=== PATIENT | male | born 1970 | race Caucasian/White ===

== ENCOUNTER 2017-09-21 18:34 | Inpatient (IN) | payer OTHER, SELFPAY ==
[2017-09-21 19:05] LABS: Absolute Lymphocytes (CBC) 1.5 K/uL (0.7-4.9); Absolute Monocytes 0.5 K/uL (0.1-1.3); Absolute Neutrophil 6.4 K/uL (1.8-8.0); Basophils % 0.7 % (0-1.3); Hematocrit 49.9 % (39.6-49.0); Lymphocytes % 17.6 % (15.3-44.8); MCH 31.9 pg (27.0-35.0); MCV 93.4 fL (80-100); MPV 8.5 fL (7.6-11.3); Monocytes % 5.4 % (3.3-12.3); RBC Red Blood Cell Count 5.34 M/uL (4.33-5.43)
--- NOTE | 2017-09-21 19:21 | RAD REPORT ---
EXAM DESCRIPTION: RAD - Chest Single View - 09/21/2017 7:03 pm CLINICAL HISTORY: Chest pain. COMPARISON: 04/30/2017, 06/25/2015 FINDINGS: Portable technique limits examination quality. The lungs are grossly clear. The heart is normal in size. No displaced fractures. IMPRESSION: No acute intrathoracic process suspected.
[2017-09-21 19:25] LABS: Protime INR 0.97
[2017-09-21 19:26] LABS: Bicarbonate 24 mEq/L (21-31); Glucose Level 98 mg/dL (65-120); Potassium 3.1 mEq/L (3.6-5.0); Sodium Level 135 mEq/L (135-145)
[2017-09-21 19:32] LABS: ALT/SGPT 40 IU/L (10-60); AST/SGOT 43 IU/L (10-42); Alkaline Phosphatase 52 IU/L (42-121); BUN Blood Urea Nitrogen 16 mg/dL (6-20); Bilirubin Direct 0.2 mg/dL (0-0.2); Bilirubin Total 0.6 mg/dL (0.3-1.2); Creatine Phosphokinase 466 IU/L (22-269); Magnesium 1.8 mg/dL (1.8-2.5); Protein, Total 6.8 g/dL (6.0-8.3)
[2017-09-21] MEDS ORDERED: ASPIRIN 81 MG CHEWABLE TABLET ONE (19:34)
[2017-09-21 19:36] LABS: CKMB Creatine Kinase MB 5.4 ng/ml (0.3-4.0)
[2017-09-21] MEDS ORDERED: POTASSIUM 25 MEQ EFFERV TAB ONE (20:19)
[2017-09-21 21:24] LABS: Barbiturates NEGATIVE; Benzodiazepines POSITIVE; Cocaine NEGATIVE; Opiates NEGATIVE; Phencyclidine NEGATIVE; THC Cannibis NEGATIVE
[2017-09-21 21:34] LABS: METHAMPHETAM POSITIVE (NEGATIVE)
[2017-09-21 22:59] LABS: Urine Blood TRACE (NEG); Urine Glucose NEGATIVE (NEG); Urine Protein 3+ (NEG); Urine Specific Gravity 1.025 (1.005-1.030)
--- NOTE | 2017-09-22 01:11 | ER ---
Nurse's Notes [facility] Name: Sanchez Muse Age: 47 yrs Sex: Male : 1970 Arrival Date: 09/21/2017 Time: 18:37 Bed 15 Private MD: Diagnosis: Chest pain, unspecified;Abnormal electrocardiogram [ECG] [EKG] Presentation: 09/21 18:40 Presenting complaint: EMS states: EMS states patient had sudden onset of mid sternal ae1 chest pain while sitting down talking. Patient states he has a hx of HTN and anxiety. After 0.4 x 3 mg of SL nitro, chest pain and BP have decreased. Transition of care: patient was not received from another setting of care. Onset of symptoms was September 21, 2017. Risk Assessment: Do you want to hurt yourself or someone else? Patient reports no desire to harm self or others. Care prior to arrival: Medication(s) given: Nitroglycerin, 0.4 mg SL x 3, IV initiated. 18 GA, in the right antecubital area. 18:40 Method Of Arrival: EMS: [facility] ae1 18:40 Acuity: TERI 3 ae1 Triage Assessment: 18:43 General: Appears uncomfortable, Behavior is cooperative, anxious. Pain: Complains of ae1 pain in xyphoid area and mid-sternal area Pain does not radiate. Pain currently is 3 out of 10 on a pain scale. Neuro: Level of Consciousness is awake, alert, obeys commands, Oriented to person, place, time, situation. Cardiovascular: Respiratory: Airway is patent Respiratory effort is even, unlabored, Respiratory pattern is regular, symmetrical, Breath sounds are clear bilaterally. Derm: Skin is flushed, Skin temperature is warm. Historical: - Allergies: 18:48 No Known Allergies; ae1 - Home Meds: 18:48 Adderall XR 10 mg Oral cp24 [Active]; lisinopril 20 mg Oral tab 1 tab once daily ae1 [Active]; Xanax 1 mg Oral tab 1 tab as needed for Anxiety [Active]; - PMHx: 18:48 ADD/ADHD; Hypertension; insomnia; ae1 - Immunization history:: Last tetanus immunization: up to date Flu vaccine is up to date. - Social history:: Smoking status: Patient uses tobacco products, denies chronic smoking, but will smoke occasionally. - Ebola Screening: : Patient denies travel to an Ebola-affected area in the 21 days before illness onset. Screenin:10 Abuse screen: Denies threats or abuse. Denies injuries from another. Nutritional aa1 screening: No deficits noted. Tuberculosis screening: No symptoms or risk factors identified. Fall Risk None identified. Assessment: 19:10 General: Appears in no apparent distress. comfortable, Behavior is calm, cooperative, aa1 appropriate for age. Pain: Complains of pain in mid-sternal area and xyphoid area Is continuous, Alleviated by medications. Neuro: Level of Consciousness is awake, alert, obeys commands, Oriented to person, place, time, situation, Moves all extremities. Full function Gait is steady, Speech is normal. Cardiovascular: Reports chest pain, Heart tones S1 S2 present Capillary refill < 3 seconds Patient's skin is warm and dry. Rhythm is regular. Respiratory: Airway is patent Respiratory effort is even, unlabored, Respiratory pattern is regular, symmetrical. GI: No signs and/or symptoms were reported involving the gastrointestinal system. : No signs and/or symptoms were reported regarding the genitourinary system. EENT: No signs and/or symptoms were reported regarding the EENT system. Derm: Skin is intact, is healthy with good turgor, Skin is pink, warm \T\ dry. Musculoskeletal: Circulation, motion, and sensation intact. Capillary refill < 3 seconds, Range of motion: intact in all extremities. 20:11 Reassessment: Patient appears in no apparent distress at this time. Patient and/or aa1 family updated on plan of care and expected duration. Pain level reassessed. Patient is alert, oriented x 3, equal unlabored respirations, skin warm/dry/pink. Pt awaiting repeat troponin to be drawn at 2300. Patient denies pain at this time. 21:04 Reassessment: Patient appears in no apparent distress at this time. Patient and/or aa1 family updated on plan of care and expected duration. Pain level reassessed. Patient is alert, oriented x 3, equal unlabored respirations, skin warm/dry/pink. Pt awaiting repeat troponin due at 2300. 23:11 Reassessment: Patient appears in no apparent distress at this time. Patient and/or aa1 family updated on plan of care and expected duration. Pain level reassessed. Patient is alert, oriented x 3, equal unlabored respirations, skin warm/dry/pink. Repeat troponin sent. 09/22 00:28 Reassessment: Patient appears in no apparent distress at this time. Patient and/or aa1 family updated on plan of care and expected duration. Pain level reassessed. Patient is alert, oriented x 3, equal unlabored respirations, skin warm/dry/pink. Awaiting provider disposition. 01:43 Reassessment: Patient appears in no apparent distress at this time. Patient and/or aa1 family updated on plan of care and expected duration. Pain level reassessed. Patient is alert, oriented x 3, equal unlabored respirations, skin warm/dry/pink. Awaiting bed assignment. 02:45 Reassessment: Patient appears in no apparent distress at this time. Patient and/or aa1 family updated on plan of care and expected duration. Pain level reassessed. Patient is alert, oriented x 3, equal unlabored respirations, skin warm/dry/pink. Awaiting bed assignment. 03:47 Reassessment: Patient appears in no apparent distress at this time. Patient and/or aa1 family updated on plan of care and expected duration. Pain level reassessed. Patient is alert, oriented x 3, equal unlabored respirations, skin warm/dry/pink. Pt to be ER hold at this time. Vital Signs: 09/21 18:49 BP 143 / 86; Pulse 66; Resp 16; Temp 98.3(O); Pulse Ox 98% on R/A; Weight 97.52 kg (R); ae1 19:35 BP 144 / 74; Pulse 61; Resp 18; Pulse Ox 95% on R/A; aa1 20:10 BP 141 / 90; Pulse 66; Resp 16; Pulse Ox 98% on R/A; aa1 21:04 BP 145 / 99; Pulse 82; Resp 14; Pulse Ox 99% on R/A; Pain 0/10; aa1 21:49 BP 142 / 83; Pulse 66; Resp 18; Pulse Ox 99% on R/A; Pain 0/10; aa1 22:30 BP 146 / 88; Pulse 60; Resp 16; Pulse Ox 98% on R/A; Pain 0/10; aa1 23:32 BP 141 / 94; Pulse 54; Resp 16; Pulse Ox 98% on R/A; Pain 0/10; aa1 09/22 00:28 BP 114 / 80; Pulse 59; Resp 16; Pulse Ox 96% on R/A; Pain 0/10; aa1 01:43 BP 141 / 79; Pulse 54; Resp 14; Pulse Ox 97% on R/A; Pain 0/10; aa1 02:30 BP 149 / 99; Pulse 58; Resp 16; Pulse Ox 97% on R/A; Pain 0/10; aa1 03:45 BP 147 / 81; Pulse 53; Resp 16; Pulse Ox 97% on R/A; Pain 0/10; aa1 ED Course: 09/21 18:37 Patient arrived in ED. ch 18:43 Triage completed. ae1 18:44 Janette Jackson, RIANA is Primary Nurse. ch 18:49 Arm band placed on right wrist. EKG completed in triage. Results shown to MD. ae1 18:50 Bed in low position. Call light in reach. Side rails up X 1. Adult w/ patient. Cardiac ae1 monitor on. Pulse ox on. NIBP on. Patient is accompanied by [employer] police officer. 18:57 Juan R Rodriguez NP is PHCP. pm1 18:57 Jose Antonio Kay MD is Attending Physician. pm1 19:01 X-ray completed. Portable x-ray completed in exam room. Patient tolerated procedure bb2 well. 19:02 XRAY Chest (1 view) In Process Unspecified. EDMS 19:10 Maintain EMS IV. Dressing intact. Good blood return noted. Site clean \T\ dry. Gauge \T\ aa 1 site: 18g RAC. 20:08 Kassidy Narvaez, RIANA is Primary Nurse. aa1 09/22 01:07 Alon Puente MD is Hospitalizing Provider. pm1 01:44 No provider procedures requiring assistance completed. Patient admitted, IV remains in aa1 place. Administered Medications: 09/21 19:35 Drug: Aspirin Chewable Tablet 324 mg Route: PO; aa1 21:48 Follow up: Response: No adverse reaction aa1 20:20 Drug: Potassium Effervescent Tablet 50 mEq Route: PO; aa1 21:48 Follow up: Response: No adverse reaction aa1 09/22 01:20 Drug: Lovenox 1 mg/kg Route: Sub-Q; Site: left lower abdomen; aa1 02:30 Follow up: Response: No adverse reaction aa1 Outcome: 01:11 Decision to Hospitalize by Provider. pm1 08:24 Patient left the ED. Signatures: Dispatcher [employer] Janette Loaiza RN RN Kassidy Narvaez RN RN aa1 Juan R Rodriguez, DIPPING MACHINE OPERATOR DIPPING MACHINE OPERATOR pm1 Delbert Lemon RN RN ae1 Analisa Vivas 2
--- NOTE | 2017-09-22 01:11 | EDPHYS ---
Physician Documentation [facility] Name: Sanchez Muse Age: 47 yrs Sex: Male : 1970 Arrival Date: 09/21/2017 Time: 18:37 Bed 15 Private MD: ED Physician Jose Antonio Kay HPI: 09/22 01:00 This 47 yrs old Male presents to ER via EMS with complaints of Chest pain. pm1 01:00 The patient or guardian reports chest pain that is located primarily in the mid-sternal pm1 area. Onset: 1 hour prior to arrival. The pain does not radiate. Associated signs and symptoms: Pertinent positives: shortness of breath, Pertinent negatives: abdominal pain, headache, nausea, palpitations, vomiting. The chest pain is described as sharp, squeezing. Duration: The patient or guardian reports a single episode, that is now resolved. Modifying factors: The symptoms are alleviated by NTG, X3. the symptoms are aggravated by nothing. Severity of pain: in the emergency department the pain has resolved. EMS care prior to arrival includes: nitroglycerin, x 3, with resolution of the chest pain. patient reports on and off chest pain for 1-2 years. The patient has not recently seen a physician, the patient's primary care provider is Dr. Zapata. Patient under police custody. Patient in 1 year long divorce proceedings with his ex-. He went to see his son and the called the police on him, reporting that he was making threats of harm. Patient started experiencing chest pain when he was talking to the officers. Patient with hx of HTN, anxiety, ADD. Historical: - Allergies: 09/21 18:48 No Known Allergies; ae1 - Home Meds: 18:48 Adderall XR 10 mg Oral cp24 [Active]; lisinopril 20 mg Oral tab 1 tab once daily ae1 [Active]; Xanax 1 mg Oral tab 1 tab as needed for Anxiety [Active]; - PMHx: 18:48 ADD/ADHD; Hypertension; insomnia; ae1 - Immunization history:: Last tetanus immunization: up to date Flu vaccine is up to date. - Social history:: Smoking status: Patient uses tobacco products, denies chronic smoking, but will smoke occasionally. - Ebola Screening: : Patient denies travel to an Ebola-affected area in the 21 days before illness onset. ROS: 09/22 01:00 Constitutional: Negative for fever, chills, and weight loss, Eyes: Negative for injury, pm1 pain, redness, and discharge, ENT: Negative for injury, pain, and discharge, Neck: Negative for injury, pain, and swelling. Abdomen/GI: Negative for abdominal pain, nausea, vomiting, diarrhea, and constipation, Back: Negative for injury and pain. : Negative for injury, bleeding, discharge, and swelling, MS/Extremity: Negative for injury and deformity, Skin: Negative for injury, rash, and discoloration, Neuro: Negative for headache, weakness, numbness, tingling, and seizure. Cardiovascular: Positive for chest pain, Negative for edema, orthopnea, palpitations. Respiratory: Positive for shortness of breath, Negative for cough, wheezing. Exam: 01:00 Constitutional: This is a well developed, well nourished patient who is awake, alert, pm1 and in no acute distress. Head/Face: Normocephalic, atraumatic. Eyes: Pupils equal round and reactive to light, extra-ocular motions intact. Lids and lashes normal. Conjunctiva and sclera are non-icteric and not injected. Cornea within normal limits. Periorbital areas with no swelling, redness, or edema. ENT: Nares patent. No nasal discharge, no septal abnormalities noted. Tympanic membranes are normal and external auditory canals are clear. Oropharynx with no redness, swelling, or masses, exudates, or evidence of obstruction, uvula midline. Mucous membranes moist. Neck: Trachea midline, no thyromegaly or masses palpated, and no cervical lymphadenopathy. Supple, full range of motion without nuchal rigidity, or vertebral point tenderness. No Meningismus. 01:00 Cardiovascular: Regular rate and rhythm with a normal S1 and S2. No gallops, murmurs, or rubs. Normal PMI, no JVD. No pulse deficits. Respiratory: Lungs have equal breath sounds bilaterally, clear to auscultation and percussion. No rales, rhonchi or wheezes noted. No increased work of breathing, no retractions or nasal flaring. Abdomen/GI: Soft, non-tender, with normal bowel sounds. No distension or tympany. No guarding or rebound. No evidence of tenderness throughout. Back: No spinal tenderness. No costovertebral tenderness. Full range of motion. Skin: Warm, dry with normal turgor. Normal color with no rashes, no lesions, and no evidence of cellulitis. MS/ Extremity: Pulses equal, no cyanosis. Neurovascular intact. Full, normal range of motion. 01:00 Chest/axilla: Inspection: normal, Palpation: is normal. 01:00 Neuro: Orientation: is normal, Motor: is normal, moves all fours, Sensation: is normal, no obvious gross deficits. 01:00 Psych: Behavior/mood is pleasant, cooperative, Affect is calm. Vital Signs: 09/21 18:49 BP 143 / 86; Pulse 66; Resp 16; Temp 98.3(O); Pulse Ox 98% on R/A; Weight 97.52 kg (R); ae1 19:35 BP 144 / 74; Pulse 61; Resp 18; Pulse Ox 95% on R/A; aa1 20:10 BP 141 / 90; Pulse 66; Resp 16; Pulse Ox 98% on R/A; aa1 21:04 BP 145 / 99; Pulse 82; Resp 14; Pulse Ox 99% on R/A; Pain 0/10; aa1 21:49 BP 142 / 83; Pulse 66; Resp 18; Pulse Ox 99% on R/A; Pain 0/10; aa1 22:30 BP 146 / 88; Pulse 60; Resp 16; Pulse Ox 98% on R/A; Pain 0/10; aa1 23:32 BP 141 / 94; Pulse 54; Resp 16; Pulse Ox 98% on R/A; Pain 0/10; aa1 09/22 00:28 BP 114 / 80; Pulse 59; Resp 16; Pulse Ox 96% on R/A; Pain 0/10; aa1 01:43 BP 141 / 79; Pulse 54; Resp 14; Pulse Ox 97% on R/A; Pain 0/10; aa1 02:30 BP 149 / 99; Pulse 58; Resp 16; Pulse Ox 97% on R/A; Pain 0/10; aa1 03:45 BP 147 / 81; Pulse 53; Resp 16; Pulse Ox 97% on R/A; Pain 0/10; aa1 MDM: 09/21 19:09 Patient medically screened. pm1 09/22 01:06 Data reviewed: vital signs. Data interpreted: Pulse oximetry: on room air is 96 %. pm1 Interpretation: normal. Counseling: I had a detailed discussion with the patient and/or guardian regarding: the historical points, exam findings, and any diagnostic results supporting the discharge/admit diagnosis, lab results, radiology results, the need for further work-up and treatment in the hospital. 01:10 ED course: Repeat ECG with changes. V1-V4 appear to be Wellen's sign. patient continues pm1 to be chest pain free since administration of nitro. Will admit patient due to ECG changes for cardiology evalution. 09/21 18:44 Order name: Basic Metabolic Panel; Complete Time: 19:56 ch 09/21 18:44 Order name: BNP; Complete Time: 19:56 ch 09/21 18:44 Order name: CBC with Diff; Complete Time: 19:56 ch 09/21 18:44 Order name: Ckmb; Complete Time: 19:56 09/21 18:44 Order name: CPK; Complete Time: 19:56 09/21 18:44 Order name: LFT's; Complete Time: 19:56 09/21 18:44 Order name: Magnesium; Complete Time: 19:56 09/21 18:44 Order name: PT-INR; Complete Time: 19:56 09/21 18:44 Order name: Ptt, Activated; Complete Time: 19:56 09/21 18:44 Order name: Troponin (emerg Dept Use Only); Complete Time: 19:56 09/21 19:58 Order name: UDS; Complete Time: 23:03 pm1 09/21 20:51 Order name: Urine Dipstick--Ancillary (enter results); Complete Time: 23:03 rg2 09/21 23:00 Order name: Troponin (emerg Dept Use Only); Complete Time: 00:06 aa1 09/22 07:37 Order name: Troponin I EDTX 09/21 18:44 Order name: XRAY Chest (1 view); Complete Time: 19:23 09/21 18:44 Order name: EKG; Complete Time: 18:45 09/21 18:44 Order name: Cardiac monitoring; Complete Time: 19:29 ch 09/21 18:44 Order name: EKG - Nurse/Tech; Complete Time: 19:29 09/21 18:44 Order name: IV Saline Lock; Complete Time: 19:29 09/21 18:44 Order name: Labs collected and sent; Complete Time: 19:29 09/21 18:44 Order name: O2 Per Protocol; Complete Time: 19:29 09/21 18:44 Order name: O2 Sat Monitoring; Complete Time: 19:29 09/21 18:44 Order name: Urine Dipstick-Ancillary (obtain specimen); Complete Time: 21:49 ch Administered Medications: 09/21 19:35 Drug: Aspirin Chewable Tablet 324 mg Route: PO; aa1 21:48 Follow up: Response: No adverse reaction aa1 20:20 Drug: Potassium Effervescent Tablet 50 mEq Route: PO; aa1 21:48 Follow up: Response: No adverse reaction aa1 09/22 01:20 Drug: Lovenox 1 mg/kg Route: Sub-Q; Site: left lower abdomen; aa1 02:30 Follow up: Response: No adverse reaction aa1 Disposition: 09/23 07:14 Co-signature as Attending Physician, Jose Antonio Kay MD Available for consultation at ps1 all times. . Disposition: 09/22/17 01:11 Hospitalization ordered by Alon Puente for Inpatient Admission. Preliminary diagnosis are Chest pain, unspecified, Abnormal electrocardiogram [ECG] [EKG]. - Bed requested for Telemetry/MedSurg (observation). - Status is Inpatient Admission. ch - Condition is Stable. - Problem is new. - Symptoms have improved. UTI on Admission? No Signatures: Dispatcher [employer] EDMS Kris Forte rg2 Janette Jackson RN RN Veronica Devine RN RN Kassidy Narvaez RN RN aa1 Juan R Rodriguez, FRANKLIN TILE ERECTOR pm1 Delbert Lemon RN RN ae1 Jose Antonio Kay MD MD ps1 Corrections: (The following items were deleted from the chart) 09/22 03:28 01:11 Hospitalization Ordered by Alon Puente MD for Inpatient Admission. Preliminary rg2 diagnosis is Chest pain, unspecified; Abnormal electrocardiogram [ECG] [EKG]. Bed requested for Telemetry/MedSurg (Inpatient). Status is Inpatient Admission. Condition is Stable. Problem is new. Symptoms have improved. UTI on Admission? No. pm1 06:22 03:28 09/22/2017 01:11 Hospitalization Ordered by Alon Puente MD for Inpatient kl Admission. Preliminary diagnosis is Chest pain, unspecified; Abnormal electrocardiogram [ECG] [EKG]. Bed requested for [facility] ER HOLD. Status is Inpatient Admission. Condition is Stable. Problem is new. Symptoms have improved. UTI on Admission? No. rg2 07:24 06:22 09/22/2017 01:11 Hospitalization Ordered by Alon Puente MD for Inpatient rg2 Admission. Preliminary diagnosis is Chest pain, unspecified; Abnormal electrocardiogram [ECG] [EKG]. Bed requested for Telemetry/MedSurg (observation). Status is Inpatient Admission. Condition is Stable. Problem is new. Symptoms have improved. UTI on Admission? No. kl 08:24 07:24 09/22/2017 01:11 Hospitalization Ordered by Alon Puente MD for Inpatient Admission. Preliminary diagnosis is Chest pain, unspecified; Abnormal electrocardiogram [ECG] [EKG]. Bed requested for Telemetry/MedSurg (observation). Status is Inpatient Admission. Condition is Stable. Problem is new. Symptoms have improved. UTI on Admission? No. rg2
[2017-09-22] MEDS ORDERED: ENOXAPARIN 100 MG/ML SYR SQ ONE (01:16)
[2017-09-22 04:43] VITALS: BMI 32.6
[2017-09-22] MEDS ORDERED: ACETAMINOPHEN 500 MG TAB PO PRN (06:30)
[2017-09-22] MEDS ORDERED: MORPHINE 4 MG/ML SYR IV PRN (06:30)
[2017-09-22] MEDS ORDERED: Morphine 2 MG/2 ML SYR IV PRN (07:35)
--- NOTE | 2017-09-22 07:38 | P.HP ---
Certification for Inpatient Patient admitted to: Inpatient With expected LOS: >2 Midnights Patient will require the following post-hospital care: None Practitioner: I am a practitioner with admitting privileges, knowledge of patient current condition, hospital course, and medical plan of care. Services: Services provided to patient in accordance with Admission requirements found in Title 42 Section 412.3 of the Code of Federal Regulations Patient History Date of Service: 09/22/17 Reason for admission: Chest pain rule out acute coronary syndrome History of Present Illness: Patient is a 47-year-old gentleman who came into the hospital with chest pain. Chest pain started when the police were arresting him. Apparently, patient had gotten into an altercation and was being arrested. His chest pain slowly worsened and he was evaluated by the ER physician assistant film editor. The ER physician assistant film editor wanted to admit the patient for further evaluation. Patient states he has been having chest pain in the past. He was recently diagnosed with pneumonia this year. He said he has had some cardiac workup but everything has been unremarkable. He says his chest pain has resolved. His troponins have been negative so far. If his last set of troponins are negative he should be stable for discharge with outpatient follow-up. Allergies No Known Allergies Allergy (Verified 08/31/12 10:43) Home Medications: Alprazolam [Xanax] 1 mg PO PRN PRN 09/22/17 Dextroamphetamine/Amphetamine [Adderall Xr 10 mg Capsule] 10 mg PO DAILY Lisinopril [Prinivil] 20 mg PO DAILY 09/22/17 - Past Medical/Surgical History Diabetic: No -: HTN -: Anxiety -: ADD/ADHD -: hand sx - Family History Father Family History: Reviewed- Non-Contributory - Social History Smoking Status: Current some day smoker Alcohol use: Yes CD- Drugs: No Caffeine use: Yes Place of Residence: Home Review of Systems 10-point ROS is otherwise unremarkable Physical Examination - Vital Signs Temperature: 98.0 F Blood Pressure: 125/93 Pulse: 56 Respirations: 16 Pulse Ox (%): 96 - Physical Exam General: Alert, In no apparent distress, Oriented x3 HEENT: Atraumatic, PERRLA, Mucous membr. moist/pink, EOMI, Sclerae nonicteric Neck: Supple, 2+ carotid pulse no bruit, No LAD, Without JVD or thyroid abnormality Respiratory: Clear to auscultation bilaterally, Normal air movement Cardiovascular: Regular rate/rhythm, Normal S1 S2, No murmurs Gastrointestinal: Normal bowel sounds, Soft and benign, Non-distended, No tenderness Musculoskeletal: No clubbing, No swelling, No tenderness Integumentary: No rashes Neurological: Normal gait, Normal speech, Normal strength at 5/5 x4 extr, Normal tone, Sensation intact, Cranial nerves 3-12 intact, Normal affect Lymphatics: No axilla or inguinal lymphadenopathy - Studies Laboratory Data (last 24 hrs) 09/21/17 18:50: PT 11.4, INR 0.97, APTT 26.1 09/21/17 18:50: WBC 8.5, Hgb 17.1, Hct 49.9 H, Plt Count 170 09/21/17 18:50: B-Natriuretic Peptide 106 H 09/21/17 18:50: Sodium 135, Potassium 3.1 L, BUN 16, Creatinine 0.90, Glucose 98 , Magnesium 1.8, Total Bilirubin 0.6, AST 43 H, ALT 40, Alkaline Phosphatase 52 Assessment & Plan - Problems (Diagnosis) (1) Chest pain, rule out acute myocardial infarction Current Visit: Yes Status: Acute (2) Anxiety as acute reaction to exceptional stress Current Visit: Yes Status: Acute (3) HTN (hypertension) Current Visit: Yes Status: Acute (4) Family history of cardiac disorder in father Current Visit: Yes Status: Acute (5) Polysubstance (excluding opioids) dependence Current Visit: Yes Status: Acute - Plan 1. Serial troponins and EKG 2. Cardiology consultation 3. Echocardiogram 4. Anti-platelet therapy,beta-lidia, statin, and O2 as needed 5. IV morphine for pain 6. Nitro p.r.n. 7. Anticipate discharge under police custody if troponins and echo are negative Discharge Plan: Home Plan to discharge in: 24 Hours - Advance Directives Does patient have a Living Will: No Does patient have a Durable POA for Healthcare: No - Code Status/Comfort Care Code Status Assessed: Yes Code Status: Full Code Critical Care: No Time Spent Managing PTS Care (In Minutes): 50
[2017-09-22] MEDS ORDERED: METOPROLOL TAR 50 MG TAB PO SCH (09:00)
[2017-09-22] MEDS ORDERED: ASPIRIN EC 81 MG TAB PO SCH (09:00)
[2017-09-22 11:20] LABS: Absolute Lymphocytes (CBC) 1.5 K/uL (0.7-4.9); Absolute Monocytes 0.4 K/uL (0.1-1.3); Absolute Neutrophil 4.1 K/uL (1.8-8.0); Basophils % 0.9 % (0-1.3); Eosinophils % 1.8 % (0-4.4); Hematocrit 51.6 % (39.6-49.0); Lymphocytes % 23.9 % (15.3-44.8); MCH 31.8 pg (27.0-35.0); MCV 95.5 fL (80-100); MPV 8.9 fL (7.6-11.3); Monocytes % 6.7 % (3.3-12.3)
[2017-09-22 12:03] LABS: ALT/SGPT 39 IU/L (10-60); AST/SGOT 42 IU/L (10-42); Albumin 3.7 g/dL (3.2-5.5); Alkaline Phosphatase 54 IU/L (42-121); BUN Blood Urea Nitrogen 14 mg/dL (6-20); Bicarbonate 27 mEq/L (21-31); Bilirubin Total 0.9 mg/dL (0.3-1.2); Glucose Level 121 mg/dL (65-120); Phosphorus 2.1 mg/dL (2.5-4.3); Potassium 3.6 mEq/L (3.6-5.0); Protein, Total 6.4 g/dL (6.0-8.3); Sodium Level 132 mEq/L (135-145)
[2017-09-22 12:32] VITALS: O2SAT 98
--- NOTE | 2017-09-22 13:43 | EKG ---
Test Date: 2017-09-22 Test Time: 00:52:51 Steam Roller Operator: STEFANI MEASUREMENT RESULTS: Intervals: Rate: 57 [place]: 138 QRSD: 118 QT: 476 QTc: 463 [place]: P: 34 [place]: 138 QRS: -12 T: 0 INTERPRETIVE STATEMENTS: Sinus bradycardia Left ventricular hypertrophy with QRS widening T wave abnormality, consider anterolateral ischemia Prolonged QT Abnormal ECG Compared to ECG 06/25/2015 13:54:12 T-wave abnormality now present Possible ischemia now present Prolonged QT interval now present Sinus rhythm no longer present Electronically Signed On 09-22-17 13:40:51 CDT by Boaz Arora
--- NOTE | 2017-09-22 13:44 | EKG ---
Test Date: 2017-09-21 Test Time: 18:49:40 Grain Manager: ORQUIDEA MEASUREMENT RESULTS: Intervals: Rate: 76 [place]: 142 QRSD: 104 QT: 396 QTc: 445 [place]: P: 30 W[place]: 142 QRS: 12 T: -31 INTERPRETIVE STATEMENTS: Normal sinus rhythm Left ventricular hypertrophy with repolarization abnormality Abnormal ECG Compared to ECG 06/25/2015 13:54:12 Early repolarization now present Electronically Signed On 09-22-17 13:41:05 CDT by Boaz Arora
--- NOTE | 2017-09-22 14:20 | ECHO ---
HEIGHT: 5 ft 8 in WEIGHT: 214 lb 15.917 oz DATE OF STUDY: 09/21/[address]: 2-DIMENSIONAL: YES M.MODE: YES DOPPLER: YES COLOR FLOW: YES TDS: NO PORTABLE: NO DEFINITY: NO BUBBLE STUDY: NO DIAGNOSIS: DYSPNEA CARDIAC HISTORY: CATHERIZATION: NO SURGERY: NO PROSTHETIC VALVE: NO PACEMAKER: NO MEASUREMENTS (cm) DIASTOLIC (NORMALS) SYSTOLIC (NORMALS) IVSd 1.4(0.6-1.2) LA Diam (1.9-4.0) LVEF 42% LVIDd 5.7 (3.5-5.7) LVIDs 4.5 (2.0-3.5) %FS 21% LVPWd 1.5 (0.6-1.2) Ao Diam 3.5 (2.0-3.7) 2 DIMENSIONAL ASSESSMENT: RIGHT ATRIUM: NORMAL LEFT ATRIUM: DILATED RIGHT VENTRICLE: NORMAL LEFT VENTRICLE: NORMAL SIZE TRICUSPID VALVE: NORMAL MITRAL VALVE: NORMAL PULMONIC VALVE: NORMAL AORTIC VALVE: NORMAL PERICARDIAL EFFUSION: NONE AORTIC ROOT: NORMAL LEFT VENTRICULAR WALL MOTION: MILD GLOBAL HYPOKINESIS. DOPPLER/COLOR FLOW: MILD TRICUSPID REGURGITATION. NORMAL RIGHT VENTRICULAR SYSTOLIC PRESSURE. COMMENTS: LEFT ATRIAL ENLARGEMENT. MILD GLOBAL HYPOKINESIS. EJECTION FRACTION 40-45% TECHNOLOGIST: JORDAN RODRIGUEZ
--- NOTE | 2017-09-22 14:42 | P.DS ---
Admission Date: 09/22/17 Discharge Date: 09/22/17 Primary Care Provider: Dr. Mijares Disposition: ROUTINE DISCHARGE Discharge Condition: GOOD Reason for Admission: Chest pain rule out acute coronary syndrome Procedures: Echocardiogram: Ejection fraction 40-45%. Left atrial enlargement. Mild global hypokinesis - Problems (1) Anxiety as acute reaction to exceptional stress Onset Date: 09/22/17 Current Visit: Yes Status: Acute (2) Chest pain, rule out acute myocardial infarction Onset Date: 09/22/17 Current Visit: Yes Status: Acute (3) HTN (hypertension) Onset Date: 09/22/17 Current Visit: Yes Status: Chronic Qualifiers: Hypertension type: essential hypertension Qualified Code(s): I10 - Essential (primary) hypertension (4) Polysubstance (excluding opioids) dependence Onset Date: 09/22/17 Current Visit: Yes Status: Acute (5) Family history of cardiac disorder in father Onset Date: 09/22/17 Current Visit: No Status: Chronic (6) Tobacco abuse Current Visit: Yes Status: Acute (7) CHF (congestive heart failure) Current Visit: Yes Status: Chronic Qualifiers: Heart failure type: systolic Heart failure chronicity: chronic Qualified Code(s): I50.22 - Chronic systolic (congestive) heart failure (8) LEONARD-inhibitor cough Current Visit: Yes Status: Acute Brief History of Present Illness: 47-year-old male presented to the ER with chest pain. Chest pain occurred when he was getting arrested. The patient was brought to the ER for evaluation. Patient was observed. Patient with history of hypertension but non compliant with his medication. He reports a chronic cough with lisinopril. Hospital Course: During the course of his stay cardiac enzymes unremarkable. Echocardiogram showed ejection fraction of about 40-45%. Chest pain resolved. Patient will be discharged. No need for intervention at this time. Patient has hypertension. Patient appears to have Leonard allergy with lisinopril. He reports a chronic cough. Patient also reports noncompliance with his blood pressure medication. At discharge medications will include aspirin 81 mg daily and losartan 50 mg daily. Recommendation is to maintain blood pressures less 150/ 80. Further adjustment can be done by his PCP. Recommendations for the patient follow up with cardiology as an outpatient to further evaluate. Patient may require cardiac intervention to further assess his hypertension and CHF. Patient may have the beginning of systolic CHF. Patient without edema to the lower extremities. Patient asymptomatic. Recommendation is to limit his fluid intake to less than 2 L per day. He is to decrease his salt intake. Compliance with blood pressure medication is encouraged. Recommendations for the patient follow up with cardiology as an outpatient to further monitor. Patient was positive for amphetamines. Patient has used ADD medication the past. Recommendation to discontinue medications. Patient with history of tobacco abuse. Tobacco cessation addressed in detail. Vital Signs/Physical Exam: Temp Pulse Resp BP Pulse Ox 98.0 F 56 16 125/93 H 96 09/22/17 10:29 09/22/17 12:42 09/22/17 10:29 09/22/17 12:42 09/22/17 10:29 General: Alert, In no apparent distress, Oriented x3, Cooperative HEENT: Atraumatic, Mucous membr. moist/pink Neck: Supple Respiratory: Clear to auscultation bilaterally, Normal air movement Cardiovascular: Normal pulses, Regular rate/rhythm Gastrointestinal: Normal bowel sounds, Soft and benign, Non-distended, No tenderness, No masses, No rebound, No guarding Musculoskeletal: No erythema, No tenderness, No warmth Integumentary: No tenderness/swelling, No erythema, No warmth, No cyanosis Neurological: Normal speech, Normal strength at 5/5 x4 extr, Normal tone, Normal affect Laboratory Data at Discharge: WBC 6.1 K/uL (4.3-10.9) D 09/22/17 10:57 Hgb 17.2 g/dL (13.6-17.9) 09/22/17 10:57 Hct 51.6 % (39.6-49.0) H 09/22/17 10:57 Plt Count 172 K/uL (152-406) 09/22/17 10:57 PT 11.4 SECONDS (9.5-12.5) 09/21/17 18:50 INR 0.97 09/21/17 18:50 APTT 26.1 SECONDS (24.3-36.9) 09/21/17 18:50 Sodium 132 mEq/L (135-145) L 09/22/17 10:57 Potassium 3.6 mEq/L (3.6-5.0) 09/22/17 10:57 BUN 14 mg/dL (6-20) 09/22/17 10:57 Creatinine 0.89 mg/dL (0.61-1.24) 09/22/17 10:57 Glucose 121 mg/dL (65-120) H 09/22/17 10:57 Phosphorus 2.1 mg/dL (2.5-4.3) L 09/22/17 10:57 Magnesium 2.0 mg/dL (1.8-2.5) 09/22/17 10:57 Total Bilirubin 0.9 mg/dL (0.3-1.2) 09/22/17 10:57 AST 42 IU/L (10-42) 09/22/17 10:57 ALT 39 IU/L (10-60) 09/22/17 10:57 Alkaline Phosphatase 54 IU/L (42-121) 09/22/17 10:57 Troponin I < 0.03 ng/mL (<0.03) 09/22/17 06:50 B-Natriuretic Peptide 106 pg/ml (<=100) H 09/21/17 18:50 Home Medications: Aspirin [Aspirin EC 81 MG] 81 mg PO DAILY #90 tablet. 09/22/17 Losartan Potassium 50 mg PO DAILY #30 tablet 09/22/17 New Medications: Aspirin [Aspirin EC 81 MG] 81 mg PO DAILY #90 tablet. Losartan Potassium 50 mg PO DAILY #30 tablet Patient Discharge Instructions: 1. Patient will need a follow up with his PCP in 1 week to follow up this hospitalization. 2. Patient presented with chest pain. Chest pain resolved. Cardiac enzymes unremarkable. Echocardiogram shows ejection fraction 40%. Patient will continue with a 2000 cc per day fluid restriction and low-salt diet. At discharge patient will continue with aspirin 81 mg daily. Patient with history of hypertension. Lisinopril has been discontinued due to Leonard allergy. At discharge he will continue with losartan 50 mg 1 pill daily. Recommendation is to maintain blood pressures less 150/80. Further adjustment can be done by his PCP. Recommendation is for the patient to follow up with cardiology in 1-2 weeks to follow this hospitalization. 3. Recommendation is to discontinue benzodiazepines and amphetamine use. 4. If his chest pain persists, patient may need follow up with cardiology as an outpatient to further monitor. Diet: AHA Activity: Fall precautions Followup: Babak Rivera MD [ACTIVE - CAN ADMIT] - Time spent managing pt's care (in minutes): 55
[2017-09-22 17:19] VITALS: BP 132/84; TEMP 97.7
--- NOTE | 2017-09-22 20:28 | CON ---
History Of Present Illness: The patient is a 47-year-old male without any significant past cardiac h istory. He has a history of ADD and hypertension and he takes Xanax, Advil, and lisinopril. He came in with atypical chest pain and shortness of breath. CPK was 460, MB was 5.4. EKG showed left vent ricular hypertrophy. An echocardiogram was done before, I saw him that showed some mild global hypok inesis. Past Medical History: As stated above. Allergies: NONE KNOWN. Review of Systems: Negative. Social History: Negative. Family History: Noncontributory. Medications: Listed earlier. Physical Examination: Vital Signs: Stable, afebrile, asymptomatic now. HEENT: Negative. Neck: Supple with no bruit. Chest: Clear. Cardiac: Revealed a regular rhythm and rate. No murmurs, gallops, or rubs. Abdomen: Benign. Extremities: Revealed no clubbing, cyanosis, or edema. Diagnostic Data: As stated earlier. Impression And Plan: Mild global hypokinesis on echocardiography in a patient with chest pain, only risk factor is hypertension. EKG showed left ventricular hypertrophy. CPKs and MBs are slightly con cerning, although his troponin is negative. It is unlikely have an acute coronary syndrome, but nevertheless, I recommend we do a Lexiscan before he goes home. I discussed t he case with Dr. Puente. JORGE/WESLEY Voice ID: [id number] Report ID: [id number]
--- NOTE | 2017-09-23 02:56 | P.PN ---
Date of Service: 09/22/17 I was notified by Dr. Arora regarding abnormal echocardiogram in an otherwise young 47yo male. Recommended that patient would need to be further evaluated as primary concern for patient's new diagnosis of acute CHF systolic dysfunction is ischemic cardiomyopathy. Spoke to nursing staff, and was notified that patient had been discharged. I asked them to hold discharge. I called [facility], as [facility], and asked them to bring patient back to his room. They were very helpful in bringing patient back to his room as per cardiology concern. Patient was advised to get further testing including a lexiscan. However, patient decided to go AMA and stated he would return to hospital once released from [facility].
== END 2017-09-22 16:30 | disposition left against medical advice (07) | DRG 313 ==
LOC: ER 18:34 → ERHOLD 09-22 02:09 → 2ND 09-22 06:32
PROVIDERS: ADMIT Hospitalist; ATTEND Hospitalist
DX: R07.9 Chest pain, unspecified (principal); I50.21 Acute systolic (congestive) heart failure; F15.20 Other stimulant dependence, uncomplicated; I11.0 Hypertensive heart disease with heart failure; F41.1 Generalized anxiety disorder; F43.0 Acute stress reaction; R05 Cough; T46.4X5A Adverse effect of angiotensin-converting-enzyme inhibitors, initial encounter; Z91.14 Patient's other noncompliance with medication regimen
CPT/HCPCS: 36415; 71045; 80048; 80053; 80076; 80307; 81003; 82550; 82553; 83735; 83880; 84100; 84484; 85025; 85610; 85730; 93005; 93306; 96372; 99284; J1650

== ENCOUNTER 2018-03-15 05:23 | Emergency (ER) | payer SELFPAY ==
[2018-03-15] MEDS ORDERED: LIDOCAINE 1% MPF 30 ML VIAL ONE ×2 (05:40→06:04)
[2018-03-15 05:44] LABS: Absolute Lymphocytes (CBC) 3.7 K/uL (0.7-4.9); Absolute Monocytes 0.7 K/uL (0.1-1.3); Absolute Neutrophil 7.6 K/uL (1.8-8.0); Basophils % 0.8 % (0-1.3); Eosinophils % 2.3 % (0-4.4); Hematocrit 49.8 % (39.6-49.0); Lymphocytes % 29.9 % (15.3-44.8); MCV 91.4 fL (80-100); MPV 8.9 fL (7.6-11.3); Monocytes % 5.6 % (3.3-12.3); RBC Red Blood Cell Count 5.46 M/uL (4.33-5.43)
[2018-03-15 06:02] LABS: Potassium 3.7 mmol/L (3.5-5.1)
[2018-03-15 06:28] LABS: Protime INR 1.13
[2018-03-15 06:29] LABS: Albumin 3.6 g/dL (3.4-5.0); Bilirubin Direct 0.2 mg/dL (0-0.2); Bilirubin Total 0.5 mg/dL (0.2-1.0); Protein, Total 7.3 g/dL (6.4-8.2); Troponin (Emerg Dept Use Only) 0.02 ng/mL (0.0-0.045)
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
--- NOTE | 2018-03-15 06:55 | EDPHYS ---
Physician Documentation [facility] Name: Sanchez Muse Age: 47 yrs Sex: Male : 1970 Arrival Date: 03/15/2018 Time: 05:24 Bed 5 Private MD: ED Physician Jesus Zurita HPI: 03/15 06:42 This 47 yrs old Male presents to ER via Wheelchair with complaints of pkl Laceration. 06:42 The patient or guardian reports injury, a laceration, clean, 6 cm(s). The complaints pkl affect the right wrist diffusely. Context: resulted from cut by knife. Onset: The symptoms/episode began/occurred just prior to arrival. Associated signs and symptoms: Pertinent positives: of the chest pain. Historical: - Allergies: 06:07 No Known Allergies; tl2 - Home Meds: 06:07 Adderall XR 10 mg Oral cp24 [Active]; lisinopril 20 mg Oral tab 1 tab once daily tl2 [Active]; Xanax 1 mg Oral tab 1 tab as needed for Anxiety [Active]; - PMHx: 06:07 ADD/ADHD; Hypertension; insomnia; tl2 - Immunization history:: Adult Immunizations up to date, Last tetanus immunization: up to date. - Immunization history: Last tetanus immunization: < 5 years ago. - Social history:: Smoking status: Patient uses tobacco products, denies chronic smoking, but will smoke occasionally. - Ebola Screening: : No symptoms or risks identified at this time. ROS: 06:42 Eyes: Negative for injury, pain, redness, and discharge, ENT: Negative for injury, pkl pain, and discharge, Neck: Negative for injury, pain, and swelling. 06:42 Cardiovascular: Positive for chest pain. 06:42 Respiratory: Negative for cough, shortness of breath. 06:42 Abdomen/GI: Negative for abdominal pain, nausea, vomiting, and diarrhea. 06:42 Back: Negative for acute changes. 06:42 : Negative for urinary symptoms. 06:42 MS/extremity: Positive for laceration, pain, of the right wrist. 06:42 Skin: Negative for rash. Exam: 06:42 Head/Face: Normocephalic, atraumatic. Eyes: Pupils equal round and reactive to light, pkl extra-ocular motions intact. Lids and lashes normal. Conjunctiva and sclera are non-icteric and not injected. Cornea within normal limits. Periorbital areas with no swelling, redness, or edema. ENT: Nares patent. No nasal discharge, no septal abnormalities noted. Tympanic membranes are normal and external auditory canals are clear. Oropharynx with no redness, swelling, or masses, exudates, or evidence of obstruction, uvula midline. Mucous membranes moist. Neck: Trachea midline, no thyromegaly or masses palpated, and no cervical lymphadenopathy. Supple, full range of motion without nuchal rigidity, or vertebral point tenderness. No Meningismus. Chest/axilla: Normal chest wall appearance and motion. Nontender with no deformity. No lesions are appreciated. Cardiovascular: Regular rate and rhythm with a normal S1 and S2. No gallops, murmurs, or rubs. Normal PMI, no JVD. No pulse deficits. Respiratory: Lungs have equal breath sounds bilaterally, clear to auscultation and percussion. No rales, rhonchi or wheezes noted. No increased work of breathing, no retractions or nasal flaring. Abdomen/GI: Soft, non-tender, with normal bowel sounds. No distension or tympany. No guarding or rebound. No evidence of tenderness throughout. Back: No spinal tenderness. No costovertebral tenderness. Full range of motion. Neuro: Awake and alert, GCS 15, oriented to person, place, time, and situation. Cranial nerves II-XII grossly intact. Motor strength 5/5 in all extremities. Sensory grossly intact. Cerebellar exam normal. Normal gait. 06:42 Musculoskeletal/extremity: Extremities: grossly normal except: noted in the right wrist: pain, laceration. Vital Signs: 05:25 BP 67 / 49; Pulse 118; Resp 22; Pulse Ox 98% on R/A; tl2 05:37 BP 70 / 43; Pulse 94; Resp 22; Pulse Ox 99% ; tl2 05:45 BP 92 / 66; Pulse 91; Resp 22; Pulse Ox 100% on R/A; tl2 05:50 BP 95 / 63; Pulse 98; Resp 18; Pulse Ox 99% ; tl2 06:35 BP 103 / 73; Pulse 102; Resp 14; Pulse Ox 100% on R/A; tl2 07:06 BP 110 / 83; Pulse 91; Resp 18; Pulse Ox 100% on R/A; tl2 Adela Coma Score: 06:01 Eye Response: spontaneous(4). Verbal Response: oriented(5). Motor Response: obeys tl2 commands(6). Total: 15. Trauma Score (Adult): 05:30 Eye Response: spontaneous(1); Verbal Response: oriented(1); Motor Response: obeys tl2 commands(2); Systolic BP: 50 to 75 mm Hg(2); Respiratory Rate: 10 to 29 per min(4); North Score: 15; Trauma Score: 10 Laceration: 06:42 Skin closed with 10 4-0 Prolene using simple sutures and sterile technique. pk MDM: 06:42 Data reviewed: vital signs, nurses notes, lab test result(s), EKG. pk 06:54 Patient medically screened. [facility] 03/15 05:30 Order name: Type And Screen; Complete Time: 06:41 03/15 05:30 Order name: CBC with Diff; Complete Time: 06:17 03/15 05:30 Order name: BMP; Complete Time: 06:41 03/15 05:49 Order name: Alcohol Serum/Plasma; Complete Time: 06:17 EDMS 03/15 05:57 Order name: PT-INR; Complete Time: 06:57 2 03/15 06:01 Order name: ABO/RH no charge; Complete Time: 06:17 EDMS 03/15 06:04 Order name: Liver (Hepatic) Function; Complete Time: 06:41 EDMS 03/15 06:04 Order name: Troponin (Emerg Dept Use Only); Complete Time: 06:41 EDMS 03/15 06:04 Order name: NT PRO-BNP; Complete Time: 06:41 EDMS 03/15 05:57 Order name: EKG; Complete Time: 05:57 tl2 03/15 05:57 Order name: Cardiac monitoring; Complete Time: 05:57 tl2 03/15 05:57 Order name: EKG - Nurse/Tech; Complete Time: 06:58 tl2 03/15 05:57 Order name: IV Saline Lock; Complete Time: 05:57 tl2 03/15 05:57 Order name: Labs collected and sent; Complete Time: 05:57 tl2 03/15 05:57 Order name: O2 Per Protocol; Complete Time: 05:57 tl2 03/15 05:57 Order name: O2 Sat Monitoring; Complete Time: 05:57 tl2 03/15 06:04 Order name: Magnesium; Complete Time: 06:41 EDMS Administered Medications: 05:40 Drug: NS 0.9% 2000 ml Route: IV; Rate: 1000 ml; Site: left antecubital; tl2 06:30 Follow up: Response: No adverse reaction; Blood pressure is elevated; IV Status: rr5 Completed infusion; IV Intake: 2000ml 07:40 Drug: KeFLEX 1000 mg Route: PO; jl7 07:40 Follow up: Response: Medication administered at discharge. jl7 Disposition: 03/15/18 06:54 Discharged to Home. Impression: Deep laceration right wrist. Chest pain. Ingestion of alcohol. - Condition is Stable. - Prescriptions for Keflex 500 mg Oral Capsule - take 1 capsule by ORAL route every 6 hours for 7 days; 28 capsule. Ultram 50 mg Oral Tablet - take 1 tablet by ORAL route every 8 hours As needed; 20 tablet. - Medication Reconciliation Form, Thank You Letter, Antibiotic Education, Prescription Opioid Use form. - Follow up: Delroy Villarreal MD; When: 2 - 3 days; Reason: Re-evaluation by your physician. Signatures: Dispatcher [employer] EDMS Jesus Zurita MD MD pkl Mickail, Joel, PA PA jmm Knox, Taylor RN RN tl2 Lissa Fisher RN RN jl7 William Snyder RN rr5 Corrections: (The following items were deleted from the chart) 05:48 05:40 ETHANOL+C.LAB.BRZ ordered. EDMS EDMS 06:04 05:57 HEPATIC FUNCTION+C.LAB.BRZ ordered. EDMS EDMS 06:04 05:57 MAGNESIUM+C.LAB.BRZ ordered. EDMS EDMS 06:04 05:57 PROBNP+C.LAB.BRZ ordered. EDMS EDMS 06:04 05:57 TROPONIN (EMERG DEPT USE ONLY)+C.LAB.BRZ ordered. EDMS EDMS 07:04 05:57 Chest Single View+RAD.RAD.BRZ ordered. EDMS EDMS 07:38 06:54 03/15/2018 06:54 Discharged to Home. Impression: Deep laceration right wrist. jl7 Chest pain. Ingestion of alcohol. Condition is Stable. Forms are Medication Reconciliation Form, Thank You Letter, Antibiotic Education, Prescription Opioid Use. Follow up: Delroy Villarreal; When: 2 - 3 days; Reason: Re-evaluation by your physician. pkl
[2018-03-15] MEDS ORDERED: CEPHALEXIN 250 MG CAP ONE (07:19)
[2018-03-15 07:50] VITALS: O2SAT 100
[2018-03-15 07:52] VITALS: BP 110/83
--- NOTE | 2018-03-15 10:28 | EKG ---
Test Date: 2018-03-15 Test Time: 06:59:04 Pan Greaser: JONAS MEASUREMENT RESULTS: Intervals: Rate: 96 MN: 134 QRSD: 96 QT: 358 QTc: 452 [place]: P: 28 MN: 134 QRS: -20 T: -1 INTERPRETIVE STATEMENTS: Normal sinus rhythm Minimal voltage criteria for LVH, may be normal variant Nonspecific T wave abnormality Abnormal ECG Compared to ECG 09/22/2017 00:52:51 Sinus bradycardia no longer present Possible ischemia no longer present Prolonged QT interval no longer present T-wave abnormality still present Electronically Signed On 03-15-18 10:27:16 COMMUNITY CHEST OFFICER by Babak Rivera
== END 2018-03-15 07:38 | disposition home or self-care (01) ==
LOC: ER 05:23
PROC: 0JQG0ZZ Repair Right Lower Arm Subcutaneous Tissue and Fascia, Open Approach (ICD-10-PCS; principal; 2018-03-15)
DX: S61.511A Laceration without foreign body of right wrist, initial encounter (principal); R07.9 Chest pain, unspecified; R94.31 Abnormal electrocardiogram [ECG] [EKG]; W26.0XXA Contact with knife, initial encounter; F90.9 Attention-deficit hyperactivity disorder, unspecified type; I10 Essential (primary) hypertension; G47.00 Insomnia, unspecified; Z72.0 Tobacco use; Z79.899 Other long term (current) drug therapy
CPT/HCPCS: 36415; 80048; 80076; 80320; 83735; 83880; 84484; 85025; 85610; 86850; 86900; 86901; 93005; 96360; 99284

== ENCOUNTER 2023-11-17 15:36 | Emergency (ER) | payer OTHER ==
--- OUTSIDE RECORDS SUMMARY | 2023-11-17 15:38 | XMS REPORT | Continuity of Care Document ---
Author Name Unknown Address [address] [facility] [place] [address] [facility] thconnect Address [address] [facility] [address] [place] [address] Care Team Providers Care Visual Education Teacher Name Role Phone Patel_K_WAG Attending Clinician Unavailable Patel_K_WAG Admitting Clinician Unavailable Payers Payer Name Policy Type Policy Number Effective Date Expirati on Date Source Encounters Start Date/Time End Date/Time Encounter Type Admission Type Attending Clinicians Care Facility Care Department Encounter ID Source 2022-02-18 11:05:19 2022-02-18 11:05:19 Outpatient [facility] [id number] 2022-01-30 16:24:15 2022-01-30 16:24:15 Outpatient [facility] [id number] [facility] 2020-09-13 04:05:00 2020-09-13 04:05:00 Outpatient Patel_K_WAG VFP VFP [id number] [facility]
[2023-11-17] MEDS ORDERED: ACETAMINOPHEN 500 MG TAB ONE (16:01)
[2023-11-17] MEDS ORDERED: NA CHLORIDE 0.9% 3,000 ML ONE (16:01)
[2023-11-17 16:49] LABS: Absolute Eosinophils 0.1 K/uL (0-0.5); Absolute Lymphocytes (CBC) 1.2 K/uL (0.7-4.9); Absolute Monocytes 0.9 K/uL (0.1-1.3); Absolute Neutrophil 7.5 K/uL (1.8-8.0); Basophils % 0.3 % (0-1.3); Eosinophils % 0.6 % (0-4.4); Hemoglobin 12.7 g/dL (13.6-17.9); Lymphocytes % 12.5 % (15.3-44.8); MCH 28.7 pg (27.0-35.0); MCHC 33.3 g/dL (32.0-36.0); MCV 86.1 fL (80-100); MPV 8.4 fL (7.6-11.3); Monocytes % 9.2 % (3.3-12.3); Neutrophils % 77.4 % (41.7-73.7); Platelets 157 thou/uL (152-406); RBC Red Blood Cell Count 4.41 M/uL (4.33-5.43); Red Cell Distribution Width 14.2 % (12.1-15.2)
[2023-11-17 16:51] LABS: Albumin 3.2 g/dL (3.4-5.0); Anion Gap 6.4 mEq/L (5.0-15.0); Globulin 3.2 g/dL (2.3-3.5); Potassium 3.4 mEq/L (3.5-5.1); Protein, Total 6.4 g/dL (6.4-8.2)
[2023-11-17 16:54] LABS: PT Prothrombin Time 13.6 SECONDS (9.4-12.5); PTT, Activated Partial Thromb 30.1 SECONDS (24.3-36.9); Protime INR 1.22
[2023-11-17 16:56] LABS: SARS-CoV-2 Antigen CONTROL BLUE LINE VIS/BG OK; SARS-CoV-2 Antigen Rapid Res Negative (Negative)
--- NOTE | 2023-11-17 18:35 | RAD REPORT ---
EXAM DESCRIPTION: RADChest Single View11/17/2023 5:20 pm CLINICAL HISTORY: Congestion;Cough COMPARISON: Chest Single View dated 09/27/2023; Chest Single View dated 05/25/2023; Chest Single View da toshia 09/21/2017; Chest Pa And Lat (2 Views) dated 04/30/2017 TECHNIQUE: Portable AP view of the chest. FINDINGS: The lungs are clear. No pneumothorax or effusion. The cardiomediastinal contours are unre markable. IMPRESSION: No acute cardiopulmonary process.
[2023-11-17 19:04] LABS: Specific Gravity 1.018 (1.005-1.030); Sqamous Epithelial None Seen /HPF (None Seen); Urine Bacteria None Seen /HPF (<20); Urine Bilirubin NEGATIVE (Negative); Urine Blood Negative (Negative); Urine Clarity Clear (Clear); Urine Color Yellow (Yellow); Urine Crystals Unidentified Few /HPF (None Seen); Urine Culture Reflex Order NOT NEEDED; Urine Glucose NEGATIVE (Negative); Urine Ketones NEGATIVE (Negative); Urine Microscopic Reflex YN ORDER UMIC; Urine Mucus Slight /HPF (None Seen); Urine Nitrite NEGATIVE (Negative); Urine Protein TRACE (Negative); Urine RBC <5 /HPF (None Seen); Urine Urobilinogen Normal (Normal); Urine WBC <5 /HPF (<5); Urine pH 5.5 (5.0-7.0)
--- NOTE | 2023-11-17 19:57 | ER ---
Nurse's Notes [facility] Name: Sanchez Muse Age: 53 yrs Sex: Male : 1970 Arrival Date: 11/17/2023 Time: 15:36 Bed 19 Private MD: Diagnosis: Acute upper respiratory infection, unspecified Presentation: 11/16 15:53 Chief complaint: EMS states: they were toned out for cough, congestion, and fever x4 kc6 days. Coronavirus screen: At this time, the client does not indicate any symptoms associated with coronavirus-19. Ebola Screen: No symptoms or risks identified at this time. Initial Sepsis Screen: Does the patient meet any 2 criteria? Temp <36.0*C (96.8*F)) or > 38.3*C (100.9*F). HR > 90 bpm. Does the patient have a suspected source of infection? No. Patient's initial sepsis screen is negative. Risk Assessment: Do you want to hurt yourself or someone else? Patient reports no desire to harm self or others. Onset of symptoms was November 13, 2023. 15:53 Acuity: TERI 3 kc6 15:53 Method Of Arrival: EMS: [facility] kc6 Triage Assessment: 15:55 General: Appears in no apparent distress. comfortable, well groomed, well developed, kc6 Behavior is calm, cooperative, appropriate for age. Pain: Denies pain. EENT: Reports nasal congestion. Neuro: Level of Consciousness is awake, alert, obeys commands, Oriented to person, place, time, situation, Appropriate for age. Cardiovascular: Capillary refill < 3 seconds. Respiratory: Reports cough that is Airway is patent Trachea midline Respiratory effort is even, unlabored, Respiratory pattern is regular, symmetrical, Breath sounds are clear bilaterally. GI: No signs and/or symptoms were reported involving the gastrointestinal system. : No signs and/or symptoms were reported regarding the genitourinary system. Derm: No signs and/or symptoms reported regarding the dermatologic system. Skin is intact, is healthy with good turgor, Skin is pink, warm \T\ dry. Musculoskeletal: No signs and/or symptoms reported regarding the musculoskeletal system. Circulation, motion, and sensation intact. Capillary refill < 3 seconds, Range of motion: intact in all extremities. Historical: - Allergies: 15:55 No Known Allergies; kc6 - PMHx: 15:55 ADD/ADHD; Hypertension; insomnia; kc6 - PSHx: 15:55 None; kc6 - Immunization history:: Adult Immunizations up to date. - Infectious Disease History:: Denies. - Social history:: Smoking status: Patient denies any tobacco usage or history of. Screenin:57 [facility] ED Fall Risk Assessment (Adult) History of falling in the last 3 months, kc6 including since admission No falls in past 3 months (0 pts) Confusion or Disorientation No (0 pts) Intoxicated or Sedated No (0 pts) Impaired Gait No (0 pts) Mobility Assist Device Used No (0 pt) Altered Elimination No (0 pt) Score/Fall Risk Level 0 - 2 = Low Risk. Abuse screen: Denies threats or abuse. Denies injuries from another. Nutritional screening: No deficits noted. Tuberculosis screening: No symptoms or risk factors identified. Assessment: 15:57 Reassessment: please see triage. kc6 16:49 Reassessment: Patient appears in no apparent distress at this time. No changes from 6 previously documented assessment. Patient and/or family updated on plan of care and expected duration. Pain level reassessed. Patient is alert, oriented x 3, equal unlabored respirations, skin warm/dry/pink. 17:42 Reassessment: Patient appears in no apparent distress at this time. No changes from kc6 previously documented assessment. Patient and/or family updated on plan of care and expected duration. Pain level reassessed. Patient is alert, oriented x 3, equal unlabored respirations, skin warm/dry/pink. 18:52 Reassessment: Patient appears in no apparent distress at this time. No changes from kc6 previously documented assessment. Patient and/or family updated on plan of care and expected duration. Pain level reassessed. Patient is alert, oriented x 3, equal unlabored respirations, skin warm/dry/pink. 19:00 General: Appears in no apparent distress. comfortable, Behavior is calm, cooperative, jw7 appropriate for age. Pain: Denies pain. Neuro: Level of Consciousness is awake, alert, obeys commands, Oriented to person, place, time, situation, Appropriate for age. Cardiovascular: Heart tones S1 S2 present Capillary refill < 3 seconds Clubbing of nail beds is absent JVD is absent Patient's skin is warm and dry. Respiratory: Airway is patent Trachea midline Respiratory effort is even, unlabored, Respiratory pattern is regular, symmetrical, Breath sounds are clear bilaterally. GI: Abdomen is round non-distended, Bowel sounds present X 4 quads. Abd is soft and non tender X 4 quads. : No deficits noted. No signs and/or symptoms were reported regarding the genitourinary system. EENT: No deficits noted. No signs and/or symptoms were reported regarding the EENT system. Derm: Skin is intact, is healthy with good turgor, Skin is dry, Skin is red, Skin temperature is warm. Musculoskeletal: Circulation, motion, and sensation intact. Range of motion: intact in all extremities. 20:00 Reassessment: Patient appears in no apparent distress at this time. No changes from [facility] previously documented assessment. Patient and/or family updated on plan of care and expected duration. Pain level reassessed. Patient is alert, oriented x 3, equal unlabored respirations, skin warm/dry/pink. Vital Signs: 15:53 BP 128 / 55; Pulse 97; Resp 19 S; Temp 101(O); Pulse Ox 100% on R/A; Weight 90.72 kg kc6 (R); Height 5 ft. 7 in. (R); 16:49 BP 113 / 70; Pulse 83; Resp 16 S; Pulse Ox 95% on R/A; kc6 16:59 Temp 99.3(O); kc6 17:42 BP 115 / 50; Pulse 74; Resp 18 S; Pulse Ox 95% on R/A; kc6 19:00 BP 104 / 53; Pulse 67; Resp 18 S; Pulse Ox 98% on R/A; jw7 20:00 BP 100 / 57; Pulse 65; Resp 17 S; Temp 99.2(O); Pulse Ox 96% on R/A; jw7 15:53 Body Mass Index 31.32 (90.72 kg, 170.18 cm) [facility]: 15:40 Patient arrived in ED. kb 15:41 Deepali Rivera FNP-C [facility]. kb 15:41 Mor Jhaveri MD is Attending Physician. kb 15:50 Baylee Harley, RIANA is Primary Nurse. kc6 15:55 Triage completed. kc6 15:55 Arm band placed on. kc6 15:56 Patient has correct armband on for positive identification. Bed in low position. Call kc6 light in reach. Side rails up X2. Pulse ox on. NIBP on. Pillow given. 15:56 Maintain EMS IV. Dressing intact. Good blood return noted. Site clean \T\ dry. Gauge \T\ jessa 6 site: 20G LAC. 16:31 Inserted saline lock: 20 gauge in right antecubital area, using aseptic technique. kc6 Blood collected. Flushed with 10 mL NS. 17:22 Chest Single View XRAY In Process Unspecified. EDMS 19:00 Provided Education on: use of call light. jw7 20:18 No provider procedures requiring assistance completed. IV discontinued, intact, jw7 bleeding controlled, No redness/swelling at site. Pressure dressing applied, X2. Administered Medications: 16:04 Drug: Acetaminophen PO 1000 mg PO once Route: PO; kc6 16:59 Follow up: Response: No adverse reaction; Temperature is decreased kc6 16:31 Drug: NS 0.9% IV (30 ml/kg) 30 ml/kg IV at bolus once; Sepsis Protocol Route: IV; Rate: kc6 bolus; Site: right antecubital; 20:19 Follow up: Response: No adverse reaction; IV Status: Completed infusion; IV Intake: jw7 2000ml Medication: 20:18 VIS not applicable for this client. jw7 Intake: 20:19 IV: 2000ml; Total: 2000ml. jw7 Outcome: 19:57 Discharge ordered by . nathan 20:18 Discharged to home ambulatory, jw7 20:18 Condition: stable 20:18 Discharge instructions given to patient, Instructed on discharge instructions, follow up and referral plans. Demonstrated understanding of instructions, follow-up care, 20:19 Patient left the ED. jw7 Signatures: Dispatcher [employer] EDDeepali Saldivar, FAVIAN PINEDAP-Chanda Razo RN RN jw7 Baylee Harley RN RN kc6
--- NOTE | 2023-11-17 19:57 | EDPHYS ---
Physician Documentation [facility] Name: Sanchez Muse Age: 53 yrs Sex: Male : 1970 Arrival Date: 11/17/2023 Time: 15:36 Bed 19 Private MD: ED Physician Mor Jhaveri HPI: 11/16 19:58 This 53 yrs old Male presents to ER via EMS with complaints of Cough, Congestion, Fever.kb 19:58 Pt is a 53 year old male who presents for cough, congestion and fever that started 4 kb days ago. States he had some dizziness yesterday that was similar to previous episodes of dehydration. . Historical: - Allergies: 15:55 No Known Allergies; kc6 - PMHx: 15:55 ADD/ADHD; Hypertension; insomnia; kc6 - PSHx: 15:55 None; kc6 - Immunization history:: Adult Immunizations up to date. - Infectious Disease History:: Denies. - Social history:: Smoking status: Patient denies any tobacco usage or history of. ROS: 19:57 Constitutional: As per HPI kb Exam: 16:29 Constitutional: This is a well developed, well nourished patient who is awake, alert, kb and in no acute distress. Head/Face: Normocephalic, atraumatic. ENT: Moist Mucous membranes Cardiovascular: Regular rate Respiratory: Respirations even and unlabored. No increased work of breathing. Talking in full sentences Abdomen/GI: Soft, non-tender. No distention Skin: Warm, dry with normal turgor. Normal color. MS/ Extremity: Pulses equal, no cyanosis. Neurovascular intact. Full, normal range of motion. Neuro: Awake and alert, GCS 15, oriented to person, place, time, and situation. Moves all extremities. Normal gait. 16:29 ECG was reviewed by the Attending Physician. Vital Signs: 15:53 BP 128 / 55; Pulse 97; Resp 19 S; Temp 101(O); Pulse Ox 100% on R/A; Weight 90.72 kg kc6 (R); Height 5 ft. 7 in. (R); 16:49 BP 113 / 70; Pulse 83; Resp 16 S; Pulse Ox 95% on R/A; kc6 16:59 Temp 99.3(O); kc6 17:42 BP 115 / 50; Pulse 74; Resp 18 S; Pulse Ox 95% on R/A; kc6 19:00 BP 104 / 53; Pulse 67; Resp 18 S; Pulse Ox 98% on R/A; jw7 20:00 BP 100 / 57; Pulse 65; Resp 17 S; Temp 99.2(O); Pulse Ox 96% on R/A; jw7 15:53 Body Mass Index 31.32 (90.72 kg, 170.18 cm) kc6 MDM: 15:41 Patient medically screened. kb 19:57 Data reviewed: vital signs, nurses notes. kb 19:58 Differential Diagnosis: Bronchitis Influenza Upper Respiratory Infection Viral Syndrome kb Pneumonia. Historians other than the Patient: EMS: [facility]. Counseling: I had a detailed discussion with the patient and/or guardian regarding the historical points, exam findings, and any diagnostic results supporting the discharge/admit diagnosis, lab results, radiology results, the need for outpatient follow up, a family practitioner, to return to the emergency department if symptoms worsen or persist or if there are any questions or concerns that arise at home. 11/16 15:41 Order name: Blood Culture Adult (2) kb 11/16 15:41 Order name: CBC with Diff; Complete Time: 16:53 kb 11/16 15:41 Order name: CMP; Complete Time: 16:51 kb 11/16 15:41 Order name: Lactate w/ 2H reflex if indic.; Complete Time: 16:51 kb 11/16 15:41 Order name: Protime (+inr); Complete Time: 16:55 kb 11/16 15:41 Order name: Ptt, Activated; Complete Time: 16:55 kb 11/16 15:41 Order name: Urinalysis w/ reflexes; Complete Time: 19:12 kb 11/16 15:41 Order name: Flu; Complete Time: 17:13 kb 11/16 15:41 Order name: SARS-COV-2 Antigen Rapid; Complete Time: 16:58 kb 11/16 15:41 Order name: Chest Single View XRAY; Complete Time: 18:37 kb 11/16 15:41 Order name: EKG; Complete Time: 15:42 kb 11/16 18:05 Order name: EKG; Complete Time: 18:06 kb 11/16 15:41 Order name: Accucheck; Complete Time: 16:31 kb 11/16 15:41 Order name: Cardiac monitoring; Complete Time: 16:31 kb 11/16 15:41 Order name: EKG - Nurse/Tech; Complete Time: 16:31 kb 11/16 15:41 Order name: IV Saline Lock - Large Bore; Complete Time: 16:31 kb 11/16 15:41 Order name: Labs collected and sent; Complete Time: 16:31 kb 11/16 15:41 Order name: O2 Per Protocol; Complete Time: 15:57 kb 11/16 15:41 Order name: O2 Sat Monitoring; Complete Time: 15:57 kb 11/16 15:41 Order name: Vital Signs; Complete Time: 15:57 kb 11/16 18:05 Order name: EKG - Nurse/Tech; Complete Time: 18:20 kb EC:29 Rate is 93 beats/min. Rhythm is regular. QRS Becker is Normal. NM interval is normal at kb 140 msec. QRS interval is normal at 104 msec. QT interval is normal at 447 msec. Administered Medications: 16:04 Drug: Acetaminophen PO 1000 mg PO once Route: PO; [facility] 16:59 Follow up: Response: No adverse reaction; Temperature is decreased [facility] 16:31 Drug: NS 0.9% IV (30 ml/kg) 30 ml/kg IV at bolus once; Sepsis Protocol Route: IV; Rate: kc6 bolus; Site: right antecubital; 20:19 Follow up: Response: No adverse reaction; IV Status: Completed infusion; IV Intake: jw7 2000ml Disposition Summary: 11/17/23 19:57 Discharge Ordered Notes: Location: Home kb Condition: Stable kb Diagnosis - Acute upper respiratory infection, unspecified kb Followup: kb - With: Emergency Department - When: As needed - Reason: Worsening of condition Followup: kb - With: Private Physician - When: 2 - 3 days - Reason: Recheck today's complaints, Continuance of care, Re-evaluation by your physician Discharge Instructions: - Discharge Summary Sheet kb - Upper Respiratory Infection, Adult, [id number] kb - Viral Respiratory Infection, [id number] kb Forms: - Medication Reconciliation Form kb - Antibiotic Education kb - Prescription Opioid Use kb - Patient Portal Instructions kb - Leadership Thank You Letter kb Addendum: 11/18/2023 21:30 Co-signature as Attending Physician, Mor Jhaveri MD I agree with the assessment and c garsia plan of care. Signatures: Dispatcher [employer] EDMS Deepali Rivera, ACCOUNT SUPPORT SPECIALIST-C ACCOUNT SUPPORT SPECIALIST-Ckb Mor Jhaveri MD MD cha Campbell, Kaitlyn RN RN kc6 Chanda Pereira RN jw7 Corrections: (The following items were deleted from the chart) 11/16 15:42 15:42 BLOOD CULTURE*+BA.LAB.BRZ ordered. EDMS EDMS 15:42 15:42 CBC+H.LAB.BRZ ordered. EDMS EDMS 15:42 15:42 COMPREHENSIVE METABOLIC PANEL+C.LAB.BRZ ordered. EDMS EDMS 15:42 15:42 LACTATE+C.LAB.BRZ ordered. EDMS EDMS 15:42 15:42 PROTIME (+INR)+COAG.LAB.BRZ ordered. EDMS EDMS 15:42 15:42 PTT, ACTIVATED+COAG.LAB.BRZ ordered. EDMS EDMS 15:42 15:42 Urinalysis+U.LAB.BRZ ordered. EDMS EDMS 15:42 15:42 Influenza Screen (A \T\ B)+BA.LAB.BRZ ordered. EDMS EDMS 15:42 15:42 SARS-COV-2 Antigen Rapid+I.LAB.BRZ ordered. EDMS EDMS
[2023-11-17 23:59] VITALS: BP 100/57; TEMP 99.2; O2SAT 96
--- NOTE | 2023-11-18 11:44 | EKG ---
Test Date: 2023-11-17 Test Time: 16:11:11 Site Physician: KIKO MEASUREMENT RESULTS: Intervals: Rate: 93 MT: 140 QRSD: 104 QT: 360 QTc: 447 [place]: P: 66 MT: 140 QRS: 11 T: 33 INTERPRETIVE STATEMENTS: Sinus rhythm with marked sinus arrhythmia Cannot rule out Anterior infarct, age undetermined Abnormal ECG Compared to ECG 09/27/2023 09:34:42 Myocardial infarct finding now present Prolonged QT interval no longer present Electronically Signed On 11-18-23 11:42:34 CDT by Fermin Styles
--- NOTE | 2023-11-18 11:44 | EKG ---
Test Date: 2023-11-17 Test Time: 18:16:28 Seo Manager: KIKO MEASUREMENT RESULTS: Intervals: Rate: 69 [place]: 148 QRSD: 114 QT: 450 QTc: 482 [place]: P: 51 [place]: 148 QRS: 14 T: 15 INTERPRETIVE STATEMENTS: Normal sinus rhythm Cannot rule out Anterior infarct, age undetermined Abnormal ECG Compared to ECG 11/17/2023 16:11:11 Sinus arrhythmia no longer present Myocardial infarct finding still present Electronically Signed On 11-18-23 11:42:18 CDT by Fermin Styles
== END 2023-11-17 20:19 | disposition home or self-care (01) ==
LOC: ER 15:36
DX: J06.9 Acute upper respiratory infection, unspecified (principal); Z11.52 Encounter for screening for COVID-19
CPT/HCPCS: 87040 ×2; 85025; 81001; 36415; 85610; 83605; 85730; 80053; 87804 ×2; 71045; 87811; J7030; 93005; 96365; 96366; 99285

== ENCOUNTER 2024-05-02 11:05 | Emergency (ER) | payer OTHER ==
--- OUTSIDE RECORDS SUMMARY | 2024-05-02 11:08 | XMS REPORT | Continuity of Care Document ---
Author Name Unknown Address [address] 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
[2024-05-02] MEDS ORDERED: LOSARTAN POTASSIUM 50 MG TABLET ONE (11:09)
[2024-05-02 11:30] LABS: Absolute Basophils 0.1 K/uL (0-0.5); Absolute Eosinophils 0.1 K/uL (0-0.5); Absolute Monocytes 0.4 K/uL (0.1-1.3); Absolute Neutrophil 5.8 K/uL (1.8-8.0); Basophils % 0.8 % (0-1.3); Eosinophils % 1.8 % (0-4.4); Hematocrit 47.6 % (39.6-49.0); Hemoglobin 15.9 g/dL (13.6-17.9); Lymphocytes % 13.7 % (15.3-44.8); MCH 29.4 pg (27.0-35.0); MCHC 33.5 g/dL (32.0-36.0); MCV 87.7 fL (80-100); MPV 8.1 fL (7.6-11.3); Monocytes % 5.1 % (3.3-12.3); Neutrophils % 78.6 % (41.7-73.7); Platelets 198 thou/uL (152-406); RBC Red Blood Cell Count 5.42 M/uL (4.33-5.43); Red Cell Distribution Width 14.1 % (12.1-15.2)
--- NOTE | 2024-05-02 11:42 | RAD REPORT ---
Procedure: Chest Single View HISTORY: Chest pain COMPARISON: 2023 FINDINGS: The lungs appear clear of acute infiltrate. No significant pleural effusion noted. The heart is normal size. IMPRESSION: No acute abnormality is displayed.
[2024-05-02 11:50] LABS: Anion Gap 7.4 mEq/L (5.0-15.0); Potassium 3.4 mEq/L (3.5-5.1); Troponin High Sensitivity 12.6 pg/mL (<58.9)
--- NOTE | 2024-05-02 12:18 | RAD REPORT ---
EXAM: CT brain without contrast HISTORY: Headache COMPARISON: None TECHNIQUE: Multiple contiguous axial images were obtained and a CT of the brain without contrast.. Sagittal and coronal reconstruction performed. Automated exposure control, adjustment of the mA and/or kV according to patient size, and/or iterative reconstruction. Unless otherwise specified, incidental f indings do not require dedicated imaging follow-up FINDINGS: An intracranial bleed is not seen Ventricles are normal caliber No extra-axial fluid collection noted No significant hypodensity within the brain No fluid within the visualized sinuses or mastoids noted. IMPRESSION: No acute intracranial abnormality noted. If the patient continues to have symptoms to suggest an acute intracranial abnormality then MRI of th e brain would be recommended.
--- NOTE | 2024-05-02 12:34 | RAD REPORT ---
EXAM: CTA of the chest, abdomen and pelvis HISTORY: Chest and abdominal pain COMPARISON: May 2023 CT abdomen TECHNIQUE: Multiple contiguous axial images were obtained a CTA of the chest and abdomen with contras t per aortic dissection protocol. Sagittal and coronal 3-D MIP reformats were performed. 100 cc Isovue-370 administered intravenously.Automated exposure control, adjustment of the mA and kV accordi ng to the patient size, and iterative reconstruction. Unless otherwise specified, incidental findings do not require dedicated imaging follow-up. FINDINGS: An aortic dissection not seen. No aortic aneurysm Celiac, SMA and DAE do not demonstrate a significant abnormality. Renal arteries do not demonstrate a significant abnormality. Lungs are clear Liver, spleen, pancreas, adrenals, kidneys and bladder do not demonstrate a significant abnormality No evidence of diverticulitis. Spondylosis lumbar spine results in spinal stenosis. Small left inguinal hernia IMPRESSION: No evidence of an aortic dissection
--- NOTE | 2024-05-02 12:38 | EDPHYS ---
Physician Documentation [facility] Name: Sanchez Muse Age: 53 yrs Sex: Male : 1970 Arrival Date: 05/02/2024 Time: 11:05 Bed 20 Private MD: ED Physician Wes Sheets HPI: 05/02 12:25 This 53 yrs old Male presents to ER via EMS with complaints of chest pain, headache. rn 12:25 The patient or guardian reports chest pain that is located primarily in the substernal rn area. Onset: yesterday. The pain does not radiate. Associated signs and symptoms: Pertinent positives: headache, Pertinent negatives: abdominal pain, cough, diaphoresis, palpitations, shortness of breath, syncope, vomiting. The chest pain is described as aching. Duration: The patient or guardian reports multiple episodes, that are intermittent. Modifying factors: The symptoms are alleviated by nothing. the symptoms are aggravated by Missing blood pressure medication dosing. Severity of pain: At its worst the pain was mild in the emergency department the pain is unchanged. The patient has experienced similar episodes in the past. Patient brought in by EMS, under police custody, comes from half-way for chest pain and headache. Reports has not taken his losartan in a couple of days. Feels headache/flushing, tingling all over his body, chest pain. Reports frequent intermittent chest pain for months and years without known heart attack or need for stent. Does not feel ill. No fever or chills. No vomiting or diarrhea. No back pain. No shortness of breath. No trauma. No abdominal pain.. Historical: - Allergies: 11:14 No Known Allergies; ld1 - PMHx: 11:14 ADD/ADHD; Hypertension; insomnia; ld1 - Immunization history:: Adult Immunizations up to date. - Infectious Disease History:: Denies. - Social history:: Smoking status: Patient denies any tobacco usage or history of. - Family history:: not pertinent. - Hospitalizations: : No recent hospitalization is reported. ROS: 12:25 Constitutional: Negative for fever, chills, and weight loss, Eyes: Negative for injury, rn pain, redness, and discharge, Neck: Negative for injury, pain, and swelling, Cardiovascular: Positive for chest pain Respiratory: Negative for shortness of breath, cough, wheezing, and pleuritic chest pain, Abdomen/GI: Negative for abdominal pain, nausea, vomiting, diarrhea, and constipation, Back: Negative for injury and pain, MS/Extremity: Negative for injury and deformity, Skin: Negative for injury, rash, and discoloration, Neuro: Positive for headache and tingling all over Exam: 12:25 Constitutional: This is a well developed, well nourished patient who is awake, alert, rn and in no acute distress. Head/Face: Normocephalic, atraumatic. Cardiovascular: Regular rate and rhythm. No pulse deficits. Respiratory: No increased work of breathing, no retractions or nasal flaring. Abdomen/GI: Soft, non-tender MS/ Extremity: Pulses equal, no cyanosis. Neuro: Awake and alert, GCS 15 13:32 ECG was reviewed by the Attending Physician. rn Vital Signs: 11:13 BP 142 / 96; Pulse 83; Resp 18; Temp 98.6(TE); Pulse Ox 98% on R/A; Weight 99.79 kg; ld1 Height 5 ft. 10 in. ; Pain 6/10; 11:27 BP 122 / 97; Pulse 68; Resp 18; Pulse Ox 100% on R/A; ld1 12:59 BP 129 / 84; Pulse 73; Resp 20; Pulse Ox 100% on R/A; ld1 11:13 Body Mass Index 31.57 (99.79 kg, 177.8 cm) ld1 11:13 Pain Scale: Adult ld1 MDM: 11:07 Medical Screening Exam initiated rn 12:36 Differential diagnosis: acute myocardial infarction, acute pericarditis, anxiety, rn coronary artery disease chest wall pain, pericarditis, pneumothorax, thoracic aortic disection. HEART Score: History: Slightly Suspicious (0), ECG: Normal (0), Age: > 45 and < 65 years (1), Risk Factors: No Risk Factors Known (0), Troponin: < or = 1 x Normal Limit (0), Total Score = 1. Data reviewed: vital signs, nurses notes, lab test result(s), EKG, radiologic studies, CT scan, plain films, and as a result, I will discharge patient. Counseling: I had a detailed discussion with the patient and/or guardian regarding the historical points, exam findings, and any diagnostic results supporting the discharge/admit diagnosis, lab results, radiology results, the need for outpatient follow up, to return to the emergency department if symptoms worsen or persist or if there are any questions or concerns that arise at home. Response to treatment: the patient's symptoms have markedly improved after treatment, BP is improved to 122/97 after home prescription of losartan given. Symptoms have improved as well., and as a result, I will discharge patient. Special discussion: Based on the patient's history, exam, and Dx evaluation, there is no indication for emergent intervention or inpatient Tx. It is understood by the patient/guardian that if the Sx's persist or worsen they need to return immediately for re-evaluation. I discussed with the patient/guardian in detail that at this point there is no indication for admission to the hospital. It is understood, however, that if the symptoms persist or worsen the patient needs to return immediately for re-evaluation. ED course: No acute findings and workup including CT head and CT angiogram. Blood pressure has improved after home dose of medication. Will discharge home in care of police and given return precautions. Recommend continued compliance with medication and PCP follow-up.. 05/02 11:08 Order name: Basic Metabolic Panel; Complete Time: 05/02 11:08 Order name: CBC with Diff; Complete Time: 05/02 11:08 Order name: NT PRO-BNP; Complete Time: 05/02 11:08 Order name: Troponin HS; Complete Time: 05/02 11:08 Order name: XRAY Chest (1 view); Complete Time: :05/02 11:08 Order name: CT Aorta for Dissection; Complete Time: 12:05/02 11:08 Order name: CT Head Brain wo Cont; Complete Time: 05/02 11:08 Order name: EKG; Complete Time: 05/02 11:08 Order name: Cardiac monitoring; Complete Time: 05/02 11:08 Order name: EKG - Nurse/Tech; Complete Time: 05/02 11:08 Order name: IV Saline Lock; Complete Time: 05/02 11:08 Order name: Labs collected and sent; Complete Time: 05/02 11:08 Order name: O2 Per Protocol; Complete Time: 05/02 11:08 Order name: O2 Sat Monitoring; Complete Time: : rn EC:32 Rate is 75 beats/min. Rhythm is regular. QRS [place] is Normal. OR interval is normal. QRS rn interval is normal. QT interval is normal. No Q waves. T waves are Normal. No ST changes noted. Clinical impression: Normal ECG. Interpreted by me. Reviewed by me. Administered Medications: 11:27 Drug: Losartan PO 100 mg PO once Route: PO; ld1 12:59 Follow up: Response: No adverse reaction ld1 Disposition Summary: 05/02/24 12:37 Discharge Ordered Notes: Location: Home rn Problem: new rn Symptoms: have improved rn Condition: Stable rn Diagnosis - Chest pain, unspecified rn - Essential (primary) hypertension rn Followup: rn - With: Private Physician - When: As needed - Reason: Recheck today's complaints, Re-evaluation by your physician Discharge Instructions: - Discharge Summary Sheet rn - Nonspecific Chest Pain, Adult rn - Hypertension, Adult rn - Managing Your Hypertension rn Forms: - Medication Reconciliation Form rn - Antibiotic inclusion intern - Prescription Opioid Use rn - Patient Portal Instructions rn - Leadership Thank You Letter rn Signatures: Dispatcher [employer] EDWes Purcell MD MD rn Sims, Lauren, RN RN ld1 Corrections: (The following items were deleted from the chart) 11:08 11:08 BASIC METABOLIC PANEL+C.LAB.BRZ ordered. EDMS EDMS 11:08 11:08 CBC+H.LAB.BRZ ordered. EDMS EDMS 11:08 11:08 PROBNP+C.LAB.BRZ ordered. EDMS EDMS 11:08 11:08 Troponin High Sensitivity+C.LAB.BRZ ordered. EDMS EDMS
--- NOTE | 2024-05-02 12:38 | ER ---
Nurse's Notes [facility] Name: Sanchez Muse Age: 53 yrs Sex: Male : 1970 Arrival Date: 05/02/2024 Time: 11:05 Bed 20 Private MD: Diagnosis: Chest pain, unspecified;Essential (primary) hypertension Presentation: 05/02 11:13 Chief complaint: EMS states: toned out to [facility] for headache with blood pressure ld1 problems and chest discomfort. Coronavirus screen: At this time, the client does not indicate any symptoms associated with coronavirus-19. Ebola Screen: No symptoms or risks identified at this time. Initial Sepsis Screen: Does the patient meet any 2 criteria? No. Patient's initial sepsis screen is negative. Does the patient have a suspected source of infection? No. Patient's initial sepsis screen is negative. Risk Assessment: Do you want to hurt yourself or someone else? Patient reports no desire to harm self or others. Onset of symptoms was May 02, 2024. 11:13 Method Of Arrival: EMS: [facility] ld1 11:13 Acuity: TERI 3 ld1 Triage Assessment: 11:14 General: Appears in no apparent distress. uncomfortable, Behavior is calm, cooperative, ld1 appropriate for age. Pain: Complains of pain in chest Pain does not radiate. Pain currently is 7 out of 10 on a pain scale. Quality of pain is described as throbbing, Pain began suddenly, Is continuous. EENT: No signs and/or symptoms were reported regarding the EENT system. Neuro: Level of Consciousness is awake, alert, obeys commands, Oriented to person, place, time, situation. Cardiovascular: Capillary refill < 3 seconds Patient's skin is warm and dry. Rhythm is sinus rhythm. Respiratory: Airway is patent Respiratory effort is even, unlabored. GI: Abdomen is flat, non-distended. : No signs and/or symptoms were reported regarding the genitourinary system. Derm: No signs and/or symptoms reported regarding the dermatologic system. Musculoskeletal: No signs and/or symptoms reported regarding the musculoskeletal system. Historical: - Allergies: 11:14 No Known Allergies; ld1 - PMHx: 11:14 ADD/ADHD; Hypertension; insomnia; ld1 - Immunization history:: Adult Immunizations up to date. - Infectious Disease History:: Denies. - Social history:: Smoking status: Patient denies any tobacco usage or history of. - Family history:: not pertinent. - Hospitalizations: : No recent hospitalization is reported. Screenin:15 [facility] ED Fall Risk Assessment (Adult) History of falling in the last 3 months, ld1 including since admission No falls in past 3 months (0 pts) Confusion or Disorientation No (0 pts) Intoxicated or Sedated No (0 pts) Impaired Gait No (0 pts) Mobility Assist Device Used No (0 pt) Altered Elimination No (0 pt) Score/Fall Risk Level 0 - 2 = Low Risk Oriented to surroundings, Maintained a safe environment, Educated pt \T\ family on fall prevention, incl call for assistance when getting out of bed, Assessed \T\ reinforced patient's understanding of fall precautions, Provided non-skid footwear, Hourly rounding (assess needs \T\ fall precautionary measures) done, Used ambulatory aids as needed (educated on \T\ assisted with), Used gait belt as appropriate. Abuse screen: Denies threats or abuse. Denies injuries from another. Nutritional screening: No deficits noted. Tuberculosis screening: No symptoms or risk factors identified. Assessment: 11:15 Reassessment: See triage assessment. ld1 12:21 Reassessment: Patient appears in no apparent distress at this time. No changes from ld1 previously documented assessment. Patient and/or family updated on plan of care and expected duration. Pain level reassessed. Patient is alert, oriented x 3, equal unlabored respirations, skin warm/dry/pink. Vital Signs: 11:13 BP 142 / 96; Pulse 83; Resp 18; Temp 98.6(TE); Pulse Ox 98% on R/A; Weight 99.79 kg; ld1 Height 5 ft. 10 in. ; Pain 6/10; 11:27 BP 122 / 97; Pulse 68; Resp 18; Pulse Ox 100% on R/A; ld1 12:59 BP 129 / 84; Pulse 73; Resp 20; Pulse Ox 100% on R/A; ld1 11:13 Body Mass Index 31.57 (99.79 kg, 177.8 cm) ld1 11:13 Pain Scale: Adult ld1 ED Course: 11:07 Patient arrived in ED. rn 11:07 Wes Sheets MD is Attending Physician. rn 11:08 Bernadette Flores, RN is Primary Nurse. ld1 11:14 Triage completed. ld1 11:14 Arm band placed on right wrist. ld1 11:15 Patient has correct armband on for positive identification. Placed in gown. Bed in low ld1 position. Call light in reach. Side rails up X2. hospital monitor on. Pulse ox on. NIBP on. Door closed. Noise minimized. Warm blanket given. 11:15 No provider procedures requiring assistance completed. Maintain EMS IV. Dressing ld1 intact. Good blood return noted. Site clean \T\ dry. Gauge \T\ site: 18g LAC. 11:36 XRAY Chest (1 view) In Process Unspecified. EDMS 12:09 CT Aorta for Dissection In Process Unspecified. EDMS 12:09 CT Head Brain wo Cont In Process Unspecified. EDMS 12:59 IV discontinued, intact, bleeding controlled, No redness/swelling at site. ld1 Administered Medications: 11:27 Drug: Losartan PO 100 mg PO once Route: PO; ld1 12:59 Follow up: Response: No adverse reaction ld1 Medication: 11:15 VIS not applicable for this client. ld1 Outcome: 12:37 Discharge ordered by . rn 12:58 Discharged to Law Enforcement ld1 12:58 Condition: stable 12:58 Instructed on discharge instructions, 12:59 Patient left the ED. ld1 Signatures: Dispatcher [employer] Wes Rodriguez MD MD rn Bernadette Flores, RN RN ld1
[2024-05-03 16:48] VITALS: BP 129/84; TEMP 98.6; O2SAT 100
--- NOTE | 2024-05-05 12:04 | EKG ---
Test Date: 2024-05-02 Test Time: 11:24:44 Specialties Operator: Michelle JACOBS MEASUREMENT RESULTS: Intervals: Rate: 75 [place]: 146 QRSD: 110 QT: 424 QTc: 473 [place]: P: 51 [place]: 146 QRS: -1 T: 16 INTERPRETIVE STATEMENTS: Normal sinus rhythm Normal ECG Compared to ECG 11/17/2023 18:16:28 Myocardial infarct finding no longer present Electronically Signed On 05-05-24 12:01:22 HEAD SUGAR REPROCESS OPERATOR by Fermin Styles
== END 2024-05-02 12:59 | disposition home or self-care (01) ==
LOC: ER 11:05
DX: R07.9 Chest pain, unspecified (principal); I10 Essential (primary) hypertension
CPT/HCPCS: 93005; 85025; 80048; 36415; 84484; 83880; 70450; 71275; 74175; 71045; 99284; Q9967